=== PATIENT | male | born 1930 | race Caucasian/White ===

== ENCOUNTER 2018-02-02 19:53 | Inpatient (IN) | payer MEDICARE, BC ==
[2018-02-02] MEDS ORDERED: Fentanyl 100 MCG/2 ML VIAL ONE (21:06)
--- NOTE | 2018-02-02 21:34 | RAD ---
RIGHT HIP TWO VIEWS: INDICATIONS: History of right hip pain. COMPARISON: CT of the abdomen and pelvis dated 11/23/2016. FINDINGS: There is a nondisplaced subcapital right femoral neck fracture. There is extensive post surgical ede nges involving the pelvis, likely related to a prostatectomy. There is diffuse osteopenia. IMPRESSION: Nondisplaced right subcapital femoral neck fracture. No additional acute osseous abnormality demonst rated. POS: [facility]
--- NOTE | 2018-02-02 21:46 | CT ---
CT BRAIN WITHOUT CONTRAST: INDICATIONS: Fall with head pain. COMPARISON: 12/03/2016 FINDINGS: Mild generalized cerebral and cerebellar atrophy is stable. No acute infarct, hemorrhage, or hydroce phalus is present. There is prominent calcification involving the intracranial vasculature. The sep red pellucidum and third ventricle are midline. The skull and extracranial soft tissues appear withi n normal limits. IMPRESSION: No acute intracranial abnormality. POS: [facility]
--- NOTE | 2018-02-02 21:51 | CT ---
CT CERVICAL SPINE WITHOUT CONTRAST: INDICATIONS: Fall with neck pain. COMPARISON: No comparisons are available. FINDINGS: There is severe multilevel spondylosis of the cervical spine. There is diffuse osteopenia. No acute fracture or subluxation is evident. The craniocervical junction appears within normal limits. Ther e is periarticular calcification with erosive change involving the dens, which can be seen with CPPD (calcium pyrophosphate deposition disease). It can also be seen with inflammatory arthropathies, suc h as rheumatoid arthritis. There is mild emphysematous change involving the lung apices. IMPRESSION: No acute osseous abnormality. POS: [facility]
--- NOTE | 2018-02-02 22:28 | CT ---
CT THORACIC SPINE WITHOUT CONTRAST: INDICATIONS: Fall with back pain. FINDINGS: There are age indeterminate compression abnormalities along T3 and T7. The T7 compression abnormalit y is wedge-shaped with moderate loss of height. There is a superior endplate compression abnormality involving T3. There is diffuse osteopenia. There is multilevel spondylosis. The visualized lungs are clear. There is scattered vascular calcification. There is post surgical change of prior CABG. There is an exophytic lesion off the superior pole of the right kidney, which is demonstrated as a c yst on a comparison CT dated 11/23/2016. There are other suspected cysts within the right and left k idney. The adrenal glands are normal appearing. IMPRESSION: 1. Age indeterminate T3 and T7 compression abnormalities. 2. Diffuse osteopenia. 3. Bilateral renal cysts. POS: [facility]
[2018-02-02 22:42] LABS: INR-International Normal Ratio 1.1; Prothrombin Time 14.4 SEC (12.0-14.7)
[2018-02-02 22:43] LABS: PTT 50.8 SEC (22.9-36.1)
[2018-02-02 22:53] LABS: #Lymphocytes 0.8 thou/uL (1.20-3.40); #Monocytes 1.1 thou/uL (0.11-0.59); #Neutrophils 13.3 thou/uL (1.40-6.50); %Basophils 0.1 % (0.0-1.0); %Eosinophils 0.2 % (0.0-10.0); %Lymphocytes 5.5 % (21.0-51.0); %Neutrophils 87.2 % (42.0-75.0); Hemoglobin 13.9 g/dL (14.0-18.0); Mean Corpuscular HGB CONC 33.3 g/dL (32.0-36.0); Mean Corpuscular Hemoglobin 31.5 pg (27.0-31.0); Mean Corpuscular Volume 94.8 fl (80.0-94.0); Mean Platelet Volume 8.4 fL (7.4-10.4); PLT Morphology Comment Appears Decreased; Platelet Count 106 thou/uL (130-400); RBC Distribution Width 12.2 % (11.5-14.5); Red Blood Cell (RBC) Count 4.39 mill/uL (4.70-6.10); White Blood Cell (WBC) Count 15.3 thou/uL (4.8-10.8)
[2018-02-02 22:57] LABS: ALT (SGPT) 31 U/L (8-55); AST (SGOT) 64 U/L (5-34); Albumin 3.6 g/dL (3.4-4.8); Alkaline Phosphatase 83 U/L (40-150); Anion Gap 16 mmol/L (10-20); BUN (Urea Nitrogen) 42 mg/dL (8.4-25.7); CK (CPK) 544 U/L (30-200); Calc. Creatinine Clearance 0 mL/min (70-130); Calcium 9.2 mg/dL (7.8-10.44); Carbon Dioxide 21 mmol/L (23-31); Chloride 103 mmol/L (98-107); Estimated GFR-MDRD 70; Globulin 2.7 g/dL (2.4-3.5); Glucose 166 mg/dL (83-110); Protein, Total 6.3 g/dL (5.8-8.1); Sodium 136 mmol/L (136-145)
--- NOTE | 2018-02-02 23:15 | RAD ---
LEFT HAND THREE VIEWS: INDICATIONS: Left hand pain. FINDINGS: There is scattered osteoarthrosis of the left hand. There is severe first MC osteoarthrosis. No def inite acute fracture or subluxation is evident. IMPRESSION: 1. No acute osseous abnormality. 2. Scattered osteoarthrosis of the left hand, most severe involving the first carpometacarpal joint. POS: [facility]
[2018-02-03] MEDS ORDERED: hydrALAZINE 20 MG/ML VIAL SLOW IVP PRN (00:50)
[2018-02-03] MEDS ORDERED: Dextrose 5% in Water 1,000 ML IV PRN (00:50)
[2018-02-03] MEDS ORDERED: Ondansetron HCl/PF 4 MG/2 ML Vial IVP PRN (00:50)
[2018-02-03] MEDS ORDERED: Ondansetron ODT 4 MG TAB PO PRN (00:50)
[2018-02-03] MEDS ORDERED: Dextrose 50% Abboject 50 ML SYRINGE SLOW IVP PRN (00:50)
[2018-02-03] MEDS ORDERED: Morphine 4 MG/ML VIAL SLOW IVP PRN ×2 (00:50)
[2018-02-03] MEDS ORDERED: Insulin Regular 300 UNITS/3 ML VIAL SC PRN (00:50)
[2018-02-03 00:54] VITALS: BMI 26.2
[2018-02-03] MEDS ORDERED: Acetaminophen 1,000 MG in Premix Bag 1 BAG IVPB SCH (01:00)
--- NOTE | 2018-02-03 01:06 | HP ---
DATE OF ADMISSION: 02/02/2018 REQUESTING PHYSICIAN: Dr. Cannon. ATTENDING SURGEON: Dr. Posadas. CONSULTATIONS: Orthopedics, Dr. Antonio. HISTORY OF PRESENT ILLNESS: The patient is an 87-year-old man who reportedly fell out of his bed on the previous night, landing on his right hip. The patient had some pain, was able to ambulate, utili zing his cane throughout the day to include driving his vehicle. He had gone home late this afternoo n got into bed and was unable to get up due to pain. He notified his son and family came over and he was brought to the emergency department, he underwent evaluation and examination and was noted to franks ve a right femoral neck fracture and an indeterminate T-spine fracture, which the family and the sharla ent state was probably from a fall earlier this year. ALLERGIES: LEVAQUIN. CURRENT MEDICATIONS: Janumet, nifedipine, sertraline, atorvastatin, Nexium, aspirin, multivitamin, a nd CoQ10. PAST MEDICAL HISTORY: Diabetes, hyperlipidemia, hypertension, coronary artery disease. PAST SURGICAL HISTORY: Coronary artery bypass graft surgery, prostate surgery, and kidney stone matias shyann. 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 Currently lives at home independ [facility]. He denies tobacco or drug use and drinks occasionally. FAMILY MEDICAL HISTORY: Diabetes. REVIEW OF SYSTEMS: Ten-point review of systems is negative, unless otherwise stated. PHYSICAL EXAMINATION: VITAL SIGNS: Blood pressure 130/84, heart rate 71, respirations 20, oxygen saturation is 95% on room air, temperature is 100.3. GENERAL: The patient is currently resting comfortably in the ER bed. He is awake, alert, and orient ed x3. His [place] coma scale is 15. HEENT: Head is normocephalic, atraumatic. Eyes: Extraocular motion intact. PERRLA bilaterally. E ars are atraumatic without discharge. Oropharynx is clear. NECK: Nontender. Trachea is midline. No JVD. CHEST: Clear to auscultation with good inspiratory and expiratory effort. HEART: Regular rate and rhythm. ABDOMEN: Soft, flat, nontender with active bowel sounds. Pelvis is stable with minimal tenderness t o his right hip. EXTREMITIES: Neurovascularly intact x4. BACK: Atraumatic and nontender. LABORATORY DATA: White blood cell count 15.3, hemoglobin 13.9, hematocrit 41.6, platelets 106. Sodi um 136, potassium 4.0, chloride 103, CO2 of 21, BUN 42, creatinine 1.00, glucose 166, total bilirubin 1.0, AST 64, ALT 31, alkaline phosphatase 83, creatine kinase 544. PT 14, PTT 51. INR 1.1. RADIOGRAPHIC FINDINGS: CT of the brain without contrast shows no acute intracranial abnormality. CT of the C-spine without contrast shows no acute osseous abnormality of the C-spine. CT of the thorac ic spine without contrast shows an age indeterminate T3 and T7 compression abnormality, diffuse osteo penia and bilateral renal cyst. Two views of the right hip show a nondisplaced right subcapital femo ral neck fracture. Plain radiograph of the left hand shows no acute osseous abnormality. ASSESSMENT AND PLAN: 1. Status post mechanical fall. 2. Right subcapital femur fracture. 3. Elevated CK, likely due to mild rhabdomyolysis. 4. Hyperglycemia. 5. Acute pain secondary to trauma. Plan will be to admit the patient to the surgical floor. IV hydration, pain management, pulmonary to ilet, gastritis, and mechanical thrombosis prophylaxis. We will recheck the patient's labs in the mo rning to include a repeat creatine kinase. The case was discussed with Dr. Antonio who plans on ta magdiel the patient to the operating room tomorrow after discussing with family. The evaluation, examin ation, laboratory and radiographic findings will be discussed with Dr. Posadas after this dictation.
[2018-02-03] MEDS: Ketorolac Tromethamine 30 MG/ML VIAL IVP SCH ×4 (02:26→20:57)
[2018-02-03] MEDS: Sodium Chloride 0.9% 1,000 ML IV SCH ×3 (02:30→19:33)
[2018-02-03 04:29] LABS: Bilirubin Small (Negative); Blood, Urine Negative (Negative); Clarity CLEAR (Clear); Glucose, Urine (Dipstick) Negative (Negative); Leukocyte Negative (Negative); Nitrite Negative (Negative); Protein, Urine (Dipstick) 30 mg/dL (Neg-Trace); Specific Gravity, Urine 1.022 (1.002-1.036); pH, Urine 5.5 (5.0-9.0)
[2018-02-03 04:31] LABS: Bacteria/HPF None Seen HPF (None Seen); Hyaline Casts/LPF 0-3 HYALINE CAST LPF (0-3 Hyaline); Pathc Cast-AUWi Flag 0.29 (0-2.49); RBC/HPF 0-3 HPF (0-3); Squamous Epithelial 0-3 HPF (0-3); WBC/HPF 0-3 HPF (0-3)
[2018-02-03] MEDS: Acetaminophen 1,000 MG in Premix Bag 1 BAG IVPB SCH ×4 (05:50→23:16)
[2018-02-03 06:14] LABS: CK (CPK) 362 U/L (30-200)
[2018-02-03 06:20] LABS: Calcium 8.9 mg/dL (7.8-10.44)
[2018-02-03 06:30] LABS: Anion Gap 14 mmol/L (10-20); BUN (Urea Nitrogen) 40 mg/dL (8.4-25.7); Band 7 % (5-11); Calc. Creatinine Clearance 62 mL/min (70-130); Carbon Dioxide 21 mmol/L (23-31); Chloride 104 mmol/L (98-107); Estimated GFR-MDRD 83; Glucose 143 mg/dL (83-110); Lymphocytes 13 % (21-51); MDiff Complete? YES; Magnesium 1.5 mg/dL (1.6-2.6); Mean Corpuscular HGB CONC 33.6 g/dL (32.0-36.0); Mean Corpuscular Hemoglobin 31.9 pg (27.0-31.0); Mean Corpuscular Volume 94.9 fl (80.0-94.0); Mean Platelet Volume 8.3 fL (7.4-10.4); Monocytes 12 % (0-10); Neutrophil 68 % (42-75); PLT Morphology Comment Appears Decreased; Phosphorus 3.4 mg/dL (2.3-4.7); Platelet Count 98 thou/uL (130-400); Potassium 3.5 mmol/L (3.5-5.1); RBC Distribution Width 12.1 % (11.5-14.5); Red Blood Cell (RBC) Count 4.08 mill/uL (4.70-6.10); Sodium 135 mmol/L (136-145); White Blood Cell (WBC) Count 13.9 thou/uL (4.8-10.8)
[2018-02-03] MEDS: Famotidine 20 MG TAB PO SCH (08:08)
[2018-02-03] MEDS ORDERED: Potassium Chloride 40 MEQ, Magnesium Sulfate 4 GM in Sodium Chloride 0.9% 250 ML 250 ML IVPB SCH (08:45)
--- NOTE | 2018-02-03 09:20 | CON ---
DATE OF CONSULTATION: 02/03/2018 CHIEF COMPLAINT: Right hip pain. HISTORY OF PRESENT ILLNESS: Mr. Castro is an 87-year-old male who lives independently. He lives [place]. He uses a cane for balance. He lost his balance yesterday getting out of bed. He fell to his r ight side. He landed on his right hip. He had pain in the hip. He was able to get up and move, but had pain throughout the morning. Once his pain worsened, he presented to the emergency department f or evaluation. X-rays have shown a right femoral neck fracture. He has also been found to have a th oracic spine compression fracture. This could have been chronic in nature. His primary pain is in h is hip today. ALLERGIES: LEVAQUIN. PAST MEDICAL HISTORY: Diabetes, hyperlipidemia, hypertension, and coronary artery disease. PAST SURGICAL HISTORY: Coronary artery bypass graft, prostate surgery, previous kidney stone removal . SOCIAL HISTORY: The patient lives independently. He denies tobacco, alcohol, or drug use. He is a retired [employer] professor. FAMILY MEDICAL HISTORY: Diabetes. REVIEW OF SYSTEMS: Positive for right hip pain, otherwise he feels well. He denies other positives on 10 point review of systems. IMAGES: X-rays of the right hip and pelvis demonstrate a minimally displaced femoral neck fracture o f the right hip. No other acute findings. LABORATORY STUDIES: Hemoglobin is 13.0, hematocrit 38.7. Coag studies are PT of 14.4 and INR 1.1. PHYSICAL EXAMINATION: VITAL SIGNS: Temperature is 97.9, pulse is 56, respiratory rate 16, oxygen saturation 94% on room ai r, blood pressure 118/69. GENERAL: He is alert, lying supine in no apparent distress. RESPIRATORY: Breathing comfortably. HEENT: Normocephalic and atraumatic. CARDIOVASCULAR: Pulses palpable and regular. ABDOMEN: Soft, nontender, nondistended. MUSCULOSKELETAL: The patient's right hip has pain with motion. He is able to gently move the knee a nd ankle. He is neurovascularly intact distally. Palpable pulses. SKIN: Intact. IMPRESSION: Right femoral neck fracture in an elderly male. PLAN: At this point, the patient will need operative intervention. We will plan for percutaneous sc rew fixation of the femoral neck fracture to stabilize the fracture and allow him early mobilization. Goal of surgery is to prevent complications of prolonged bed rest. He is aware of risks and benefi ts. He would like to proceed. Primary risk is of AVN, hardware failure or displacement. We will pl an for surgery today. He should remain n.p.o. He will have appropriate antibiotic prophylaxis and D VT prophylaxis.
[2018-02-03] MEDS ORDERED: CEFAZOLIN/Water 2 GM/20 ML SYRINGE SLOW IVP SCH (12:00)
[2018-02-03] MEDS ORDERED: CEFAZOLIN/Water 2 GM/20 ML SYRINGE ONE (13:50)
--- NOTE | 2018-02-03 14:34 | CON ---
DATE OF CONSULTATION: 02/03/2018 Mr. Castro is an 87-year-old man who was admitted yesterday evening to this hospital following a fall out of his bed where he broke his right hip and then also suffered what appears to be potentially a new T3 compression fracture. There is also a T7 compression fracture; however, this is old, it is st able to previous exams, particularly a lateral chest x-ray from 2017 in November. He does have some pain between the shoulder blades, which is likely from the T3 fracture. I do not believe there is an y intervention necessary from Neurosurgery, definitively nonsurgical and I do not know that a brace w ould really offer him much improvement nor help for that matter. He will need serial imaging and jonah n control. From our perspective, neurologically is intact. I believe that Orthopedics is likely nadia randhawa to recommend some type of intervention for his hip and then will follow up in the outpatient tom randhawa.
[2018-02-03] MEDS ORDERED: Bupivacaine 0.75% W/DEXTROSE 8.25% 2 ML AMP ONE (14:45)
--- NOTE | 2018-02-03 15:02 | OP ---
DATE OF OPERATION: 02/03/2018 OPERATION PERFORMED: Percutaneous screw fixation of right femoral neck fracture. PREOPERATIVE DIAGNOSIS: Right femoral neck fracture. POSTOPERATIVE DIAGNOSIS: Right femoral neck fracture. COMPLICATIONS: None. ESTIMATED BLOOD LOSS: Minimal. SURGEON: Ron Antonio M.D. ANESTHESIA: Spinal. IMPLANTS: Three 7.3 mm Synthes cannulated screws were used. INDICATIONS: Mr. Castro is an 87-year-old male who fell. He fractured the right femoral neck. He h as been indicated for a closed reduction and percutaneous screw fixation of the right femoral neck fr acture. He has elected to proceed with the operation. Risks have been reviewed in detail. Risks do include AVN, hardware failure, nonunion, malunion, pain, scarring, bleeding and others. DESCRIPTION OF OPERATION: Mr. Castro was identified in the preoperative holding area. His correct e xtremity was marked. He was carried to the operating room. He was positioned supine. General anest hesia was induced. A multidisciplinary timeout was performed. The right lower extremity was prepped and draped in sterile fashion. We began the procedure with evaluation of the fracture under intraoperative x-ray. We pulled gentle traction on the leg. The fracture was well reduced. At this point, we made a small incision after p repping and draping the right lower extremity. We then inserted a guidewire from the lateral cortex of the femur up into the femoral head. We placed 2 additional guidewires in an inverted triangle pos ition. Once we had these well placed, we took orthogonal x-rays. We then measured and overdrilled o ur guidewires. Next, three 7.3 mm screws were placed using the appropriate screwdriver. We took fin al images. We irrigated our wound and closed with 2-0 Vicryl suture and collins for the skin. A tatyana rile dressing was applied. At this point, the patient was taken to the recovery room in good conditi on without complication.
[2018-02-03] MEDS ORDERED: Sodium Chloride 0.9% 10 ML ONE (15:22)
[2018-02-03] MEDS ORDERED: PROPOFOL 200 MG/20 ML VIAL ONE (16:49)
--- NOTE | 2018-02-03 16:50 | PRG ---
DATE OF SERVICE: 02/03/2018 ATTENDING PHYSICIAN: Dr. Sterling. SUBJECTIVE: Mr. Castro is an 87-year-old man who was admitted yesterday evening after he fell out of bed and then landed on his right hip. He was evaluated at the [place] ED and found to have a rig ht hip fracture and also possibly new T3 compression fracture. He was evaluated by Dr. Marek Parks er and this compression fracture was determined to be nonoperative and not needing a brace. He is sc heduled to go to the OR today with Dr. Can for surgical fixation of his right hip. OBJECTIVE: VITAL SIGNS: BP 118/69, pulse 56, temperature 97.9, respirations 16, O2 sat 94% on room air. GENERAL APPEARANCE: The patient is an elderly adult male, lying in bed. He is in no acute distress. HEENT: Normocephalic and atraumatic. RESPIRATORY: Breath sounds are clear to auscultation bilaterally with normal effort. HEART: Regular rate and rhythm. No murmurs, gallops or rubs. ABDOMEN: Soft, nontender, nondistended. Bowel sounds are normal. EXTREMITIES: He is neurovascularly intact x4. NEUROLOGIC: GCS is 15. He is alert and oriented x3. LABORATORY DATA: Hematology: WBC is 13.9, hemoglobin 13.0, hematocrit 38.7, platelets 98. Chemistr y: Sodium 135, potassium 3.5, chloride 104, bicarbonate 21, BUN 40, creatinine 0.87, glucose 143, ca lcium 8.9, phosphorus 3.4, magnesium 1.5. Creatinine kinase 362. IMAGING: There are no images to review. ASSESSMENT: 1. Status post ground level fall. 2. Right subcapital femur fracture. 3. Elevated CK, likely due to rhabdomyolysis. 4. Acute traumatic pain. PLAN: 1. OR today with Dr. Antonio. 2. Replete electrolytes. 3. PT and OT evaluation postoperatively. The patient will need a rehab consult. 4. The patient can begin a regular diet. 5. Chemical thrombosis prophylaxis per Orthopedic Surgery recommendations. The patient also have ga stritis prophylaxis. 6. Incentive spirometry and pulmonary toileting. 7. Case management is following for help with discharge planning. The patient was seen and examined along with Dr. James Sterling, who agrees with the assessment and pl an.
--- NOTE | 2018-02-03 19:01 | RAD ---
THREE VIEWS OF THE RIGHT HIP: 02/03/18 INDICATION: Right hip pinning. COMPARISON: Two views of the right hip dated 02/02/18. FINDINGS: Since the comparison examination there has been interval percutaneous pinning of the patient's right subcapital femoral neck fracture. Fracture alignment is near anatomic. The pins project in the expect ed position. Total exposure was 26.6 seconds. Accumulated dose was 3.53 mGy. IMPRESSION: Postoperative right hip. POS: [facility]
[2018-02-03] MEDS: CEFAZOLIN/Water 2 GM/20 ML SYRINGE SLOW IVP SCH (23:15)
[2018-02-03] MEDS ORDERED: diphenhydrAMINE 25 MG CAP PO PRN (23:43)
--- NOTE | 2018-02-04 00:14 | PRG ---
DATE OF SERVICE: 02/03/2018 ATTENDING PHYSICIAN: Dr. Sterling. SUBJECTIVE: Mr. Castro is an 87-year-old male who had a ground-level fall and sustained a right hip fracture. He went to the OR today for fixation of his hip fracture. He is now seen postoperatively on the surgical floor. He complained of postoperative shivering, which has now resolved. OBJECTIVE: VITAL SIGNS: Temperature 101.8, pulse 84, respirations 17, O2 sat 92% on room air, blood pressure 16 3/79. GENERAL: Elderly male lying in bed in no acute distress. EXTREMITIES: Dressing in place to right hip clean, dry, and intact. Cap refill brisk in all extremi ties. NEUROLOGIC: Awake, alert, oriented x3. ASSESSMENT: 1. Status post ground-level fall. 2. Status post fixation of right hip fracture. 3. T3 compression fracture, nonoperative. No bracing required per Neurosurgery. PLAN: 1. Continue oral analgesia. 2. Encourage pulmonary toilet and incentive spirometry. 3. PT, OT evaluation. Patient requested to discuss code status. His [id number] is in the room at this time. They bot h agree that patient is a DNR. He was DNR prior to his operative procedure. He wishes to again be D O NOT RESUSCITATE.
[2018-02-04] MEDS: Ketorolac Tromethamine 30 MG/ML VIAL IVP SCH (02:51)
[2018-02-04] MEDS: Sodium Chloride 0.9% 1,000 ML IV SCH ×3 (02:51→18:55)
[2018-02-04] MEDS: Acetaminophen 1,000 MG in Premix Bag 1 BAG IVPB SCH (05:59)
[2018-02-04] MEDS: CEFAZOLIN/Water 2 GM/20 ML SYRINGE SLOW IVP SCH (06:00)
[2018-02-04 08:21] LABS: #Lymphocytes 0.6 thou/uL (1.20-3.40); #Monocytes 0.9 thou/uL (0.11-0.59); #Neutrophils 11.1 thou/uL (1.40-6.50); %Eosinophils 0.2 % (0.0-10.0); %Lymphocytes 4.7 % (21.0-51.0); %Neutrophils 88.1 % (42.0-75.0); Hemoglobin 11.9 g/dL (14.0-18.0); Mean Corpuscular HGB CONC 33.9 g/dL (32.0-36.0); Mean Corpuscular Hemoglobin 32.4 pg (27.0-31.0); Mean Corpuscular Volume 95.5 fl (80.0-94.0); Mean Platelet Volume 8.5 fL (7.4-10.4); Platelet Count 95 thou/uL (130-400); Red Blood Cell (RBC) Count 3.67 mill/uL (4.70-6.10); White Blood Cell (WBC) Count 12.6 thou/uL (4.8-10.8)
[2018-02-04 08:40] LABS: Anion Gap 10 mmol/L (10-20); BUN (Urea Nitrogen) 26 mg/dL (8.4-25.7); Calc. Creatinine Clearance 72 mL/min (70-130); Calcium 8.1 mg/dL (7.8-10.44); Carbon Dioxide 22 mmol/L (23-31); Chloride 108 mmol/L (98-107); Estimated GFR-MDRD Greater than 90; Glucose 134 mg/dL (83-110); Magnesium 1.6 mg/dL (1.6-2.6); Phosphorus 2.6 mg/dL (2.3-4.7); Potassium 3.2 mmol/L (3.5-5.1); Sodium 137 mmol/L (136-145)
[2018-02-04] MEDS: Famotidine 20 MG TAB PO SCH (09:10)
[2018-02-04] MEDS ORDERED: traMADol HCl 50 MG TAB PO PRN (09:22)
[2018-02-04] MEDS ORDERED: Ibuprofen 600 MG TAB PO SCH (09:30)
[2018-02-04] MEDS: Acetaminophen 500 MG TAB PO SCH ×3 (09:54→22:25)
[2018-02-04] MEDS: traMADol HCl 50 MG TAB PO SCH ×3 (09:54→22:25)
[2018-02-04] MEDS: Ibuprofen 600 MG TAB PO PRN (10:57)
[2018-02-04] MEDS ORDERED: Acetaminophen 500 MG TAB PO SCH (12:00)
[2018-02-04] MEDS ORDERED: Magnesium 2 GM/NS 0.9% 50 ML 2 GM in Premix Bag 1 BAG IVPB SCH (13:00)
[2018-02-04] MEDS ORDERED: Potassium Chloride 40 MEQ, Magnesium Sulfate 2 GM in Sodium Chloride 0.9% 250 ML 250 ML IVPB SCH (13:30)
--- NOTE | 2018-02-04 13:33 | PRG ---
DATE OF SERVICE: 02/04/2018 ATTENDING PHYSICIAN: James Sterling D.O. SUBJECTIVE: Mr. Castro is an 87-year-old man who was admitted 2 days ago after he fell out of bed an d landed on his right hip. He was found to have a right hip fracture and possibly new T3 compression fracture. He is now postop day #1, status post ORIF of his right hip fracture. He was given Benadr yl overnight for sleep. The patient reports that he slept well and voices no complaints this morning . He is eager to get out of bed and start physical therapy. OBJECTIVE: VITAL SIGNS: Blood pressure 113/62, pulse 62, respirations 16, temperature 98.5 and O2 sat 92% on ro om air. GENERAL APPEARANCE: The patient is an elderly adult male, alert and lying in bed. He is in no acute distress. HEENT: Normocephalic and atraumatic. RESPIRATORY: Breath sounds are clear to auscultation bilaterally with normal effort. CARDIOVASCULAR: Regular rate and rhythm. No murmurs, gallops or rubs. ABDOMEN: Soft, nontender and nondistended. Bowel sounds are normal. EXTREMITIES: He is neurovascularly intact x4. NEUROLOGIC: The patient's GCS is 15. He is alert and oriented x3. He has no focal deficits. LABORATORY DATA: WBC is 12.6, hemoglobin 11.9, hematocrit 35.0 and platelets 95. Chemistry: Sodium 137, potassium 3.2, chloride 108, bicarb 22, BUN 26, creatinine 0.75, glucose 134, calcium 8.1, phos phorus 2.6 and magnesium 1.6. IMAGING DATA: There are no images to review today. ASSESSMENT: 1. Status post ground level fall. 2. Right subcapital femur fracture. 3. Elevated CK secondary to rhabdomyolysis, resolving. 4. Acute traumatic pain. 5. Acute hypokalemia and hypomagnesemia. PLAN: 1. Repeat electrolytes. 2. PT and OT. The patient will be screened by rehab today. 3. Continue regular diet. 4. Optimize pain control with p.o. medications. 5. Incentive spirometry and pulmonary toilet. 6. Case management following for help with discharge planning. This patient was seen and examined along with Dr. James Sterling, who agrees with the assessment and p roxie.
[2018-02-04] MEDS ORDERED: Enoxaparin Sodium 40 MG/0.4 ML SYRINGE SC SCH (21:00)
--- NOTE | 2018-02-05 01:29 | PRG ---
DATE OF SERVICE: 02/05/2018 SUBJECTIVE: The patient is hospital day #3, postop day #2, status post ground level fall, which he s ustained a right femoral neck fracture. The patient is currently on the surgical floor and by report , the patient is tolerating a diet and his pain is controlled. The patient began working with physic al and occupational therapy and is awaiting a rehabilitation decision. OBJECTIVE: VITAL SIGNS: Temperature is 98.1, heart rate 64, blood pressure 127/64, respirations 17, and oxygen saturation is 98% on room air. GENERAL: The patient is resting comfortably in bed. He is asleep and appears in no distress. ASSESSMENT: 1. Status post ground level fall. 2. Status post open reduction and internal fixation of right femoral neck fracture. PLAN: Will be to continue supportive care and await placement decision.
[2018-02-05] MEDS: traMADol HCl 50 MG TAB PO SCH ×3 (03:52→16:29)
[2018-02-05] MEDS: Acetaminophen 500 MG TAB PO SCH ×3 (03:53→16:30)
[2018-02-05] MEDS: Sodium Chloride 0.9% 1,000 ML IV SCH (03:55)
[2018-02-05 05:04] LABS: #Eosinphils 0.1 thou/uL (0.0-0.7); #Lymphocytes 1.1 thou/uL (1.20-3.40); #Monocytes 1.1 thou/uL (0.11-0.59); #Neutrophils 10.7 thou/uL (1.40-6.50); %Basophils 0.2 % (0.0-1.0); %Eosinophils 0.9 % (0.0-10.0); %Lymphocytes 8.6 % (21.0-51.0); %Monocytes 8.7 % (0.0-10.0); %Neutrophils 81.6 % (42.0-75.0); Mean Corpuscular HGB CONC 32.7 g/dL (32.0-36.0); Mean Corpuscular Hemoglobin 31.6 pg (27.0-31.0); Mean Corpuscular Volume 96.4 fl (80.0-94.0); Mean Platelet Volume 8.9 fL (7.4-10.4); Platelet Count 119 thou/uL (130-400); RBC Distribution Width 12.3 % (11.5-14.5); White Blood Cell (WBC) Count 13.1 thou/uL (4.8-10.8)
[2018-02-05 05:10] LABS: Anion Gap 12 mmol/L (10-20); BUN (Urea Nitrogen) 27 mg/dL (8.4-25.7); Calc. Creatinine Clearance 66 mL/min (70-130); Calcium 8.6 mg/dL (7.8-10.44); Carbon Dioxide 20 mmol/L (23-31); Chloride 108 mmol/L (98-107); Estimated GFR-MDRD 88; Glucose 180 mg/dL (83-110); Phosphorus 2.7 mg/dL (2.3-4.7); Potassium 3.5 mmol/L (3.5-5.1); Sodium 136 mmol/L (136-145)
[2018-02-05] MEDS: Ibuprofen 600 MG TAB PO PRN (08:17)
[2018-02-05] MEDS: Famotidine 20 MG TAB PO SCH (08:18)
[2018-02-05] MEDS ORDERED: Bisacodyl 10 MG SUPP PR SCH (09:00)
[2018-02-05] MEDS ORDERED: Polyethylene Glycol 3350 17 GM Packet PO SCH (09:00)
[2018-02-05] MEDS ORDERED: Enoxaparin Sodium 40 MG/0.4 ML SYRINGE SC SCH (09:00)
[2018-02-05] MEDS ORDERED: Senokot S 8.6-50 MG TAB PO SCH (09:00)
--- NOTE | 2018-02-05 12:56 | RAD ---
LUMBAR SPINE THREE VIEWS: HISTORY: An 87-year-old male with a history of back pain. FINDINGS: Very severe multilevel spondylosis with marked narrowing of L5-S1, L4-L5, and L2-L3. Extensive surgi rory clips are noted in the pelvis. There is very severe facet arthrosis. No evidence for an overt a cute compression fracture. IMPRESSION: Severe spondylosis without overt acute fracture. POS: [facility]
[2018-02-05] MEDS ORDERED: Magnesium Citrate 300 ML BOT PO SCH (16:15)
[2018-02-05 16:43] VITALS: BP 172/84; TEMP 97.2
[2018-02-05] MEDS ORDERED: Gabapentin 300 MG CAP PO SCH (21:00)
--- NOTE | 2018-02-06 10:39 | DIS ---
DATE OF ADMISSION: 02/02/2018 DATE OF DISCHARGE: 02/05/2018 ADMITTING PHYSICIAN: Flavio Posadas M.D. DISCHARGING PHYSICIAN: James Sterling DO ADMISSION DIAGNOSES: 1. Status post mechanical fall. 2. Right subcapital femur fracture. 3. Elevated CK, likely due to rhabdomyolysis. 4. Hyperglycemia. 5. Acute traumatic pain. DISCHARGE DIAGNOSES: 1. Status post mechanical fall. 2. Right subcapital femur fracture. 3. Elevated CK, likely due to rhabdomyolysis. 4. Hyperglycemia. 5. Acute traumatic pain. PROCEDURES PERFORMED: Percutaneous screw fixation of right femoral neck fracture. HOSPITAL COURSE: Mr. Castro is an 87-year-old man, who fell out of bed, landing on his right hip. Camryn martin was initially able to ambulate, but the pain worsened and eventually he called his son to bring him to the [place] ED. He was evaluated and found to have a right femoral neck fracture as well as a T3 compression fracture and a T7 compression fracture, both of which were of indeterminate age. [facility] rosurgery was consulted. They felt that the T3 fracture was likely or at least potentially new where as the T7 compression fracture did appear to be old. There was no surgical intervention for either o f these fractures. The patient underwent a percutaneous screw fixation of his hip fracture on 2017. After this, he was transferred to the surgical floor where he remained hemodynamically stable for the rest of his stay. The patient was discharged to inpatient rehab on 02/05/2018 in good condit ion. DISCHARGE MEDICATIONS: The patient was discharged with all of his inpatient medications. Please see electronic medical record for details. ACTIVITY INSTRUCTIONS: The patient discharged with orthopedic limitations including with walker or a n ambulatory aid for out of bed mobilization, otherwise activity as tolerated. NURSING INSTRUCTIONS: Diabetic diet. THERAPY INSTRUCTIONS: Occupational and physical therapy. FOLLOWUP INSTRUCTIONS: The patient to follow up with his primary care doctor in 7 days. The patient also instructed to follow up with his orthopedic surgeon in 14 days.
== END 2018-02-05 18:46 | DRG 481 ==
LOC: ERS 19:53 → SURG B 22:41
PROVIDERS: ADMIT Specialist; ATTEND Specialist
PROC: 0QS634Z Reposition Right Upper Femur with Internal Fixation Device, Percutaneous Approach (ICD-10-PCS; principal; 2018-02-03)
DX: S72.011A Unspecified intracapsular fracture of right femur, initial encounter for closed fracture (principal); S22.039A Unspecified fracture of third thoracic vertebra, initial encounter for closed fracture; E11.65 Type 2 diabetes mellitus with hyperglycemia; M62.82 Rhabdomyolysis; E83.42 Hypomagnesemia; M48.54XA Collapsed vertebra, not elsewhere classified, thoracic region, initial encounter for fracture; Z95.1 Presence of aortocoronary bypass graft; E78.5 Hyperlipidemia, unspecified; I10 Essential (primary) hypertension; I25.10 Atherosclerotic heart disease of native coronary artery without angina pectoris; W19.XXXA Unspecified fall, initial encounter; E87.6 Hypokalemia; Z66 Do not resuscitate
CPT/HCPCS: 36415; 36416; 70450; 72100; 72125; 72128; 76001; 80048; 80053; 81003; 81015; 82550; 83735; 84100; 85025; 85610; 85730; 87086; 96374; A4216; C1713; C1769; G8978-GP-CK; G8979-GP-CI; G8987-GO-CL; G8988-GO-CI; J0131; J1650; J1885; J2704; J3010; J3475; J3480; J3490; J7050